=== PATIENT | female | born 1995 | race Two or more races ===

== ENCOUNTER 2016-12-19 16:27 | Emergency (ER) | payer OTHER ==
[~2016-12-19] VITALS: Ht 152.4 cm; Wt 54.4 kg
[2016-12-19 16:27] VITALS: BP 122/83
--- NOTE | 2016-12-19 17:37 | NUR ---
MEDICALLY CLEARED FOR BOOKING. D/C TO [facility]. STABLE CONDITION.
== END 2016-12-19 17:39 ==
LOC: ER 16:29
DX: S00.11XA Contusion of right eyelid and periocular area, initial encounter (principal); J45.909 Unspecified asthma, uncomplicated; W51.XXXA Accidental striking against or bumped into by another person, initial encounter; Y93.89 Activity, other specified; Y92.89 Other specified places as the place of occurrence of the external cause; Y99.8 Other external cause status
CPT/HCPCS: 99283; A4606; Z7610